=== PATIENT | male | born 1950 | race Caucasian/White ===

== ENCOUNTER 2019-05-21 10:48 | Day surgery (SDC) | payer MEDICARE ==
[~2019-05-21] VITALS: Ht 182.9 cm; Wt 88.0 kg
[2019-05-21 19:43] VITALS: BP 149/83
== END 2019-05-21 20:45 | disposition home or self-care (01) ==
LOC: OUT 10:48 → 4NOR 18:02 → OUT 20:45
PROVIDERS: ATTEND Surgery Vascular Surgery
DX: E11.22 Type 2 diabetes mellitus with diabetic chronic kidney disease (principal); N18.6 End stage renal disease; I82.612 Acute embolism and thrombosis of superficial veins of left upper extremity; K21.9 Gastro-esophageal reflux disease without esophagitis; Z86.73 Personal history of transient ischemic attack (TIA), and cerebral infarction without residual deficits
CPT/HCPCS: 36415; 36821; 80047; 82962; 93005; J0690; J1100; J1644; J2405; J2704; J2720; J3010; J7030; G0378